=== PATIENT | male | born 1930 | race Caucasian/White ===

== ENCOUNTER → 2016-10-31 | Outpatient (CLI) | payer MEDICARE | END | disposition home or self-care (01) | LOC: GMAJ 10:22 | PROVIDERS: ATTEND Family Medicine | DX: D51.3 Other dietary vitamin B12 deficiency anemia (principal); E55.9 Vitamin D deficiency, unspecified ==

== ENCOUNTER → 2018-09-18 | Outpatient (CLI) | payer MEDICARE | LOC: GMAL 11:35 | PROVIDERS: ATTEND Family Medicine | DX: D51.3 Other dietary vitamin B12 deficiency anemia (principal); R53.83 Other fatigue; E55.9 Vitamin D deficiency, unspecified ==

== ENCOUNTER → 2019-07-13 | Outpatient (CLI) | payer MEDICARE | LOC: YCHH 10:18 | PROVIDERS: ATTEND Family Medicine | DX: N18.9 Chronic kidney disease, unspecified (principal); I10 Essential (primary) hypertension; D64.9 Anemia, unspecified ==

== ENCOUNTER 2019-08-22 18:55 | Observation (INO) | payer MEDICARE ==
[2019-08-22] MEDS ORDERED: FOLIC ACID IVPB ONE (19:30)
[2019-08-22] MEDS ORDERED: SODIUM CHLORIDE 0.9% IVPB ONE (19:30)
[2019-08-22] MEDS ORDERED: THIAMINE HCL INJ 100 MG in SODIUM CHLORIDE 0.9% 100ML 100 ML IVPB ONE (19:31)
[2019-08-22] MEDS ORDERED: SODIUM CHLORIDE 0.9% 1000ML 1,000 ML IVS ONE (19:45)
--- NOTE | 2019-08-22 19:46 | CT ---
EXAM DESCRIPTION: Head CLINICAL HISTORY: fall wiht ams COMPARISON: None Available. TECHNIQUE: Contiguous axial images of the brain were obtained without the administration of intravenous contrast.This exam was performed according to our departmental dose-optimization program, which includes automated exposure control, adjustment of the mA and/or kV according to patient size and/or use of iterative reconstruction technique. FINDINGS: There is no acute intracranial hemorrhage or mass effect. Areas of low attenuation in the periventricular and subcortical white matter are nonspecific but suggestive of small vessel disease. There is generalized atrophy. Ventricular system is within normal limits. There is adequate hough-white matter differentiation. There is no skull fracture. The visualized paranasal sinuses and mastoid air cells are within normal limits. There is atherosclerosis. Subcutaneous emphysema within the left posterior scalp compatible with recent laceration. IMPRESSION: No acute intracranial abnormalities. Electronically signed by: Deniz Kendall MD 08/22/2019 7:44 PM [facility]
--- NOTE | 2019-08-22 19:49 | CT ---
EXAM DESCRIPTION: Cervical Spine CLINICAL HISTORY: fall wiht ams COMPARISON: None Available TECHNIQUE: Contiguous axial images of the cervical spine were obtained without the administration of intravenous contrast followed by reconstruction images. This exam was performed according to our departmental dose-optimization program, which includes automated exposure control, adjustment of the mA and/or kV according to patient size and/or use of iterative reconstruction technique. FINDINGS: There is no acute fracture or subluxation. Prevertebral soft tissues are within normal limits. There is diffuse intervertebral disc space narrowing and osteophytic formation. There is bilateral neural foramina narrowing at C2-C3 and C3-C4, right neural foramina narrowing at C4-C5, and bilateral neural foramina narrowing at C5-C6 and C6-7. There is atherosclerosis. IMPRESSION: No acute fracture or subluxation. Diffuse degenerative changes. Electronically signed by: Deniz Kendall MD 08/22/2019 7:48 PM [facility]
--- NOTE | 2019-08-22 19:50 | RAD ---
EXAM DESCRIPTION: Chest x-ray,1 View CLINICAL HISTORY: ams, fall COMPARISON: None FINDINGS: Cardiac silhouette is enlarged which could be secondary to cardiomegaly. Pacer leads project over the heart. EKG leads project over the chest. There is no focal parenchymal or pleural disease. There is no acute osseous process visualized. IMPRESSION: No evidence of acute cardiopulmonary disease. Electronically signed by: Deniz Kendall MD 08/22/2019 7:48 PM [employer]
--- NOTE | 2019-08-22 20:05 | ED.PDOC ---
History of Present Illness - General Chief Complaint: Trauma Stated Complaint: s/p fall Time Seen by Provider: 08/22/19 19:00 Source: patient, family, EMS Exam Limitations: clinical condition, intoxication - History of Present Illness Initial Comments: the patient is a 89-year-old male presenting to emergency room by EMS after having fallen at home. The patient does not remember the fall. Apparently he fell backwards and hit his head on the fireplace. He has a small laceration that will not require repair over the occipital area. He is alert. He is not very oriented. He does recognize his and knows that he is in the hospital. He does not know what year it is or who is president. He does keep asking the same questions over and over. I do not know how much dementia he has the first place. His definitely has some significant dementia. I see no other injuries. He is not reporting pain elsewhere. He is pleasant and cooperative. His is very nice but she is unable to really give much medical information as well. He is not remembering if he drank any alcohol today. No neck pain. No chest pain. No shortness of breath. No nausea or vomiting. He moves all extremities well while in bed. Timing/Duration: momentarily Severity: moderate Improving Factors: nothing Worsening Factors: nothing Associated Symptoms: malaise Allergies/Adverse Reactions: Allergies NO KNOWN ALLERGY Allergy (Unverified 12/27/14 12:56) Review of Systems - Review of Systems Constitutional: States: malaise EENTM: States: no symptoms reported Respiratory: States: no symptoms reported Gastrointestinal/Abdominal: States: no symptoms reported Genitourinary: States: no symptoms reported Musculoskeletal: States: no symptoms reported Skin: States: see HPI Neurological: States: see HPI Endocrine: States: no symptoms reported All other Systems: No Change from Baseline Past Medical History (General) - Patient Medical History Hx Seizures: No Hx Stroke: No Hx Dementia: No Hx Asthma: No Hx of COPD: No Hx Cardiac Disorders: No Hx Congestive Heart Failure: No Hx Pacemaker: No Hx Hypertension: No Hx Thyroid Disease: No Hx Diabetes: No Hx Gastroesophageal Reflux: No Hx Renal Disease: No Hx Cancer: No Hx of HIV: No Hx Hepatitis C: No Hx MRSA: No - Social History Hx Tobacco Use: No Family Medical History - Family History Mother Hx Family Stroke: Yes Physical Exam - Physical Exam General Appearance: Alert, Comfortable, No apparent distress Eye Exam: bilateral normal Ears, Nose, Throat: hearing grossly normal - ildly chronically decreased bilaterally, normal pharynx, other - no evidence of basilar skull fracture. Neck: full range of motion, supple Respiratory: lungs clear, normal breath sounds, no respiratory distress, no accessory muscle use Cardiovascular/Chest: normal peripheral pulses, no edema, other - regular rate Peripheral Pulses: radial,right: 2+, radial,left: 2+ Gastrointestinal/Abdominal: non tender, soft, other - pelvis is stable Back Exam: no CVA tenderness, no vertebral tenderness Extremity: normal range of motion, non-tender, normal inspection, no pedal edema, normal capillary refill Neurologic: display artist II-XII nml as tested, alert, other - see history of present illness no obvious focal neurological deficits. Skin Exam: normal color Comments: Vital Signs - 24 hr 08/22/19 19:06 Pulse Rate [ 88 Right Brachial] Respiratory 16 Rate Blood Pressure 147/64 [Right Arm] O2 Sat by Pulse 94 L Oximetry Progress - Progress Progress: 08/22/19 20:07 the patient is a 89-year-old male that apparently tripped and fell at home while inebriated, fell and hit the back of his head on the fireplace and sustained a concussion. He is still significantly intoxicated. It is difficult to tell what mental changes are from concussion and what mental changes are from any radiation. The patient is being started on folate and thiamine as well as some IV fluids. Given the patient's advanced age and his current mental status, the patient is going to be admitted overnight for continued monitoring. The patient has agreed to this as has his . Admit for continued care. CT scans and lab work are otherwise reassuring. as the alcohol wears off, he may find more sore spots that need additional evaluation. 08/22/19 20:09 - Results/Orders Results/Orders: 08/22/19 19:00 Telemetry .CONTINUOUS EKG STAT 08/22/19 19:01 URINE DRUG SCREEN, 7 ASSAY Stat EKG Assessment ONCE UA [URINALYSIS] Stat 08/22/19 19:30 Folic Acid Inj 2 mg Sodium Chloride 0.9% 50Ml [NS 50ml] 50 ml IVPB ONCE 08/22/19 19:45 Sodium Chloride 0.9% 1000ML [Ns 1000 ml] 1,000 ml IVS ONCE 08/23/19 19:00 EKG STAT Laboratory Results - last 24 hr 08/22/19 08/22/19 08/22/19 19:00 19:00 19:00 WBC 6.5 RBC 4.97 Hgb 15.3 Hct 45.9 MCV 92.3 MCH 30.8 MCHC 33.3 RDW 13.8 Plt Count 216 MPV 8.1 Absolute Neuts (auto) 3.00 Absolute Lymphs (auto) 2.60 Absolute Monos (auto) 0.80 Absolute Eos (auto) 0.10 Absolute Basos (auto) 0.10 Neutrophils % 46.7 Lymphocytes % 39.6 Monocytes % 11.8 H Eosinophils % 1.0 Basophils % 0.9 PT 10.2 INR 1.02 PTT (SP) 23.2 Sodium 139 Potassium 3.7 Chloride 105 Carbon Dioxide 26 Anion Gap 11.7 L BUN 16 Creatinine 1.01 BUN/Creatinine Ratio 15.8 POC Glucose Random Glucose 114 H Serum Osmolality 279.6 Lactic Acid Calcium 9.6 Magnesium 2.4 Total Bilirubin 0.4 AST 28 ALT 30 Alkaline Phosphatase 62 Creatine Kinase 106 CK-MB (CK-2) 3.6 CK-MB (CK-2) % Not Reportable Troponin I 0.03 B-Natriuretic Peptide 168.0 H Serum Total Protein 7.1 Albumin 3.7 Globulin 3.4 Albumin/Globulin Ratio 1.1 TSH 2.54 Ethyl Alcohol 08/22/19 08/22/19 08/22/19 19:00 19:00 19:00 WBC RBC Hgb Hct MCV MCH MCHC RDW Plt Count MPV Absolute Neuts (auto) Absolute Lymphs (auto) Absolute Monos (auto) Absolute Eos (auto) Absolute Basos (auto) Neutrophils % Lymphocytes % Monocytes % Eosinophils % Basophils % PT INR PTT (SP) Sodium Potassium Chloride Carbon Dioxide Anion Gap BUN Creatinine BUN/Creatinine Ratio POC Glucose 102 Random Glucose Serum Osmolality Lactic Acid 2.2 Calcium Magnesium Total Bilirubin AST ALT Alkaline Phosphatase Creatine Kinase CK-MB (CK-2) CK-MB (CK-2) % Troponin I B-Natriuretic Peptide Serum Total Protein Albumin Globulin Albumin/Globulin Ratio TSH Ethyl Alcohol 182.00 H* head CT shows the small scalp laceration but no acute pathology otherwise. Chronic changes are present. Cervical spine CT shows no evidence of acute pathology. He does have significant DJD throughout. Chest x-ray shows no acute pathology. EKG shows a ventricularly paced rhythm at 78 bpm. Departure - Departure Clinical Impression: Fall at home Concussion Qualifiers: Encounter type: initial encounter Loss of consciousness presence/duration: with LOC of 30 min or less Qualified Code(s): S06.0X1A - Concussion with loss of consciousness of 30 minutes or less, initial encounter Alcohol intoxication Qualifiers: Complication of substance-induced condition: with unspecified complication Qualified Code(s): F10.929 - Alcohol use, unspecified with intoxication, unspecified Disposition: Admit Patient Departure Forms: ED Discharge - Pt. Copy, Patient Portal Self Enrollment Referrals: Rahul Mckeon III, MD [Primary Care Provider] - 1-2 Weeks Decision To Admit - Decistion To Admit Decision to Admit Reason: Accidental Injury Decision to Admit Date: 08/22/19 Decision to Admit Time: 20:09
[2019-08-22] MEDS ORDERED: SODIUM CHLORIDE 0.9% 100ML 100 ML IVPB ONE (20:20)
[2019-08-22] MEDS ORDERED: THIAMINE HCL INJ 100 MG/ML VIAL ONE (20:20)
--- NOTE | 2019-08-22 20:29 | HP ---
SUPERVISING PHYSICIAN: Kevin Hayes M.D. CHIEF COMPLAINT: Trauma. HISTORY OF PRESENT ILLNESS: This is an 89 year-old male patient who came to the Emergency Room via EMS after falling at home. He did not remember the fall. He apparently fell backwards and hit his head on his fireplace. There was a small laceration on the back of his head that did not require any repair or stitching. It was in the occipital area. At the time of admission to the Emergency Room he was alert but disoriented. He did recognize his and he knew that he was at the hospital. He does have some dementia and lives at home with his . Both he and his have had some significant dementia. He did not remember drinking any alcohol, although his alcohol level was 182. His temperature in the Emergency Room was 97.1, heart rate 74, blood pressure 115/54, respiratory rate 18, O2 saturation 95% on room air. Laboratory studies were done. In addition to the elevated alcohol level his CBC was unresponsiveness. Coagulation studies were within normal limits. Electrolytes are within normal limits. Glucose 114, BNP was slightly elevated at 165. Liver function tests were normal. TSH was also normal at 254. Lactic acid was 2.2. Urinalysis was negative. Urine drug screen was negative. Head CT shows no acute intracranial abnormalities. Cervical spine CT showed no acute fracture or subluxation, diffuse degenerative changes. Chest x-ray showed no evidence of acute cardiopulmonary disease. I was called for hospital admission. PAST MEDICAL HISTORY: 1. Hyperlipidemia. 2. Hypercholesterolemia. 3. Hypertension. 4. 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 5. Atherosclerotic heart disease. 6. Pacemaker implantation. PAST SURGICAL HISTORY: 1. Pacemaker implantation. 2. Multiple excisions on the face for skin cancers. 3. Removal of a cyst from the left ring finger. OUTPATIENT MEDICATIONS: 1. Atorvastatin. 2. Donepezil. 3. Lisinopril. ALLERGIES: NO KNOWN DRUG ALLERGIES. FAMILY HISTORY: Noncontributory. SOCIAL HISTORY: He is retired. He is . He lives with his at home. He has 2 children. He does admit to drinking 1 to 2 drinks nightly. He does not remember drinking more than that last night. There is no history of alcohol abuse. There is no history of tobacco or illicit drug use. REVIEW OF SYSTEMS: GENERAL: Negative for fever, fatigue or weight changes. HEENT: Negative for sinus symptoms, ear pain vision changes or sore throat. RESPIRATORY: Negative for coughing, wheezing or shortness of breath. CARDIAC: Negative for chest pains, palpitations or tachycardia. GASTROINTESTINAL: Negative for nausea, vomiting, diarrhea or constipation. GENITOURINARY: Negative for hematuria, dysuria or polyuria. MUSCULOSKELETAL: Positive for difficulty walking around. He does not use any assistive devices. He must hold onto things due to his imbalance. Negative for arthralgia or myalgias. SKIN: Positive for a small laceration on the occipital portion of his head that did not require stitching. Negative for any rashes. NEUROLOGIC: Positive for weakness and dizziness. Negative for seizures. PHYSICAL EXAMINATION: VITAL SIGNS: Temperature 98, heart rate 80, blood pressure 135/78, respiratory rate 18, O2 saturation 95%. GENERAL: This is an 89 year-old male patient who is sitting up in his hospital bed. He is confused but in no acute distress. HEENT: Normocephalic. There is a small laceration on the occipital part of his head that is well approximated and has a scab on it. There is no active bleeding at this time. Pupils are equal and reactive. Oropharynx is clear. NECK: Supple without mass. RESPIRATORY: Essentially clear to auscultation bilaterally. CHEST: There is equal rise and fall of the chest with inspiration and expiration. CARDIOVASCULAR: Regular rate and rhythm. GASTROINTESTINAL: Abdomen is soft, nondistended, non-tender. Bowel sounds are positive. EXTREMITIES: No clubbing, cyanosis or edema. NEUROLOGIC: He is awake and alert. He is oriented to person and place. SKIN: Warm and dry. LABORATORY: Labs and films are as per the history of present illness. ASSESSMENT: 1. Altered mental status with same level fall at home resulting in a laceration to the back of the head, but no other obvious injuries. 2. ETOH intoxication that contributed to #1. 3. Weakness and debilitation contributing to #1. 4. Dementia. 5. Hyperlipidemia. 6. Hypertension. PLAN: The patient has been placed in observation. We will do neuro checks overnight and restart his home medications. I will also give him some gentle fluids and rehydrate him. He will have SCDs for deep venous thrombosis prophylaxis. Will hold on any Lovenox due to his fall. Routine lab will be redone in the morning, including a blood alcohol level. Most likely he can go home in the morning. Will continue to monitor closely and follow as needed. [facility][id number] [facility]
[2019-08-22] MEDS ORDERED: SODIUM CHLORIDE 0.9% (FLUSH) 10 ML SYG IV PRN (23:28)
[2019-08-22] MEDS ORDERED: ONDANSETRON INJ 4 MG/2 ML VIAL IV PRN (23:28)
[2019-08-22] MEDS ORDERED: KCL 20MEQ/0.45% NS 1,000 ML IVS PRN (23:28)
[2019-08-22] MEDS ORDERED: IV SET AND CAP CHANGE INJ INJ SCH (23:30)
[2019-08-23] MEDS: PANTOPRAZOLE SODIUM IV 40 MG VIAL IV SCH (06:10)
[2019-08-23] MEDS ORDERED: DONEPEZIL HCL 5 MG TAB ONE (07:40)
[2019-08-23] MEDS ORDERED: LISINOPRIL 10 MG TAB ONE (07:40)
[2019-08-23] MEDS: DONEPEZIL HCL 5 MG TAB PO SCH (08:19)
[2019-08-23] MEDS: LISINOPRIL 10 MG TAB PO SCH (08:19)
[2019-08-23] MEDS: SODIUM CHLORIDE 0.9% (FLUSH) 10 ML SYG IV SCH ×2 (08:20→20:10)
[2019-08-23] MEDS ORDERED: ATORVASTATIN 20 MG TAB PO SCH (21:00)
--- NOTE | 2019-08-23 21:55 | PN ---
DATE: 08/23/19 SUPERVISING PHYSICIAN: Kevin Hayes M.D. SUBJECTIVE: The patient is sitting up in bed. He is alert and oriented, although he has obvious dementia. Denies any shortness of breath, nausea or vomiting. He does not remember drinking last night nor does he remember falling and hitting his head. He gets confused fairly easily. Nursing reported that he had a difficult time getting around in his room last night and he had to hold onto something at all times, and agrees that he does hold onto things at home to get around. He does not use any assistive devices. OBJECTIVE: VITAL SIGNS: Temperature 98.2, heart rate 82, blood pressure 169/89, respiratory rate 16, O2 saturation 96% on room air. RESPIRATORY: Essentially clear to auscultation bilaterally. CARDIAC: Regular rate and rhythm. GASTROINTESTINAL: Abdomen is soft, nondistended, non-tender. Bowel sounds are positive. NEUROLOGIC: He is awake and alert. He is oriented to person and place, although he has quite obvious dementia. LABORATORY: CBC is unremarkable. Chemistry is unremarkable as well as cholesterol is within normal limits. Blood alcohol level this morning was less than 5.4. All other labs and films have been reviewed via the EMR. ASSESSMENT: 1. Altered mental status with same level fall at home resulting in a laceration to the back of the head, but no other obvious injuries. 2. ETOH intoxication that contributed to #1. 3. Weakness and debilitation contributing to #1. 4. Dementia. 5. Hyperlipidemia. 6. Hypertension. PLAN: We will continue present supportive care, although he will not need neuro checks overnight. He will stay in the hospital due to his weakness and debilitation to be evaluated by Physical Therapy tomorrow for safety on discharge. I have also consulted [employer] as we have initiated an [facility] referral. Hopefully he can go to the rehab facility and be evaluated as well as to rehabilitation to increase his strength. I have held on any lab for tomorrow. He should be able to be discharged after his physical therapy and after [facility] calls with their referral results. Will continue to monitor closely and follow as needed. #[id number] [facility]
[2019-08-24] MEDS: PANTOPRAZOLE SODIUM IV 40 MG VIAL IV SCH (05:37)
[2019-08-24] MEDS: SODIUM CHLORIDE 0.9% (FLUSH) 10 ML SYG IV SCH (09:26)
[2019-08-24] MEDS: DONEPEZIL HCL 5 MG TAB PO SCH (09:26)
[2019-08-24] MEDS: LISINOPRIL 10 MG TAB PO SCH (09:26)
[2019-08-24 12:22] VITALS: O2SAT 93
[2019-08-24 12:50] VITALS: BP 132/71; TEMP 98.3
[2019-08-25] MEDS ORDERED: PANTOPRAZOLE SODIUM TAB 40 MG PO SCH (06:30)
--- NOTE | 2019-09-07 08:39 | DS ---
SUPERVISING PHYSICIAN: Clementine Romero MD ADMISSION DIAGNOSIS: 1. Altered mental status with same level fall at home resulting in a laceration to the back of the head, but no other obvious injuries. 2. ETOH intoxication that contributed to #1. 3. Weakness and debilitation contributing to #1. 4. Dementia. 5. Hyperlipidemia. 6. Hypertension. DISCHARGE DIAGNOSIS: 1. Altered mental status with same level fall at home resulting in a laceration to the back of the head, but no other obvious injuries. 2. ETOH intoxication that contributed to #1. 3. Weakness and debilitation contributing to #1. 4. Dementia. 5. Hyperlipidemia. 6. Hypertension. REASON FOR HOSPITALIZATION: This is an 89 year-old male patient who came to the Emergency Room via EMS after falling at home. He did not remember the fall. He apparently fell backwards and hit his head on his fireplace. There was a small laceration on the back of his head that did not require any repair or stitching. It was in the occipital area. At the time of admission to the Emergency Room he was alert but disoriented. He did recognize his and he knew that he was at the hospital. He does have some dementia and lives at home with his . Both he and his have had some significant dementia. He did not remember drinking any alcohol, although his alcohol level was 182. His temperature in the Emergency Room was 97.1, heart rate 74, blood pressure 115/54, respiratory rate 18, O2 saturation 95% on room air. Laboratory studies were done. In addition to the elevated alcohol level his CBC was unremarkable. Coagulation studies were within normal limits. Electrolytes are within normal limits. Glucose 114, BNP was slightly elevated at 165. Liver function tests were normal. TSH was also normal at 254. Lactic acid was 2.2. Urinalysis was negative. Urine drug screen was negative. Head CT shows no acute intracranial abnormalities. Cervical spine CT showed no acute fracture or subluxation, diffuse degenerative changes. Chest x-ray showed no evidence of acute cardiopulmonary disease. I was called for hospital admission. LABORATORY: CBC was essentially within normal limits on admission and discharge with a white count of 5,300. Coagulation studies were within normal limits. Chemistries showed normal electrolytes both on admission and at discharge. Lactic acid was normal at 2.2. Liver functions were all within normal limits. TSH normal at 2.54. Urinalysis within normal limits. Alcohol on admission was 182 and prior to discharge was less than 5.4. Urine drug screen was normal. RADIOLOGY: He had multiple x-rays, one of the chest with 2 CTs, one of the cervical spine, one of the head without any acute findings. Please see those reports for details. EKG showed a 100% paced rhythm. HOSPITAL COURSE: Mr. Camarillo was admitted after sustaining a fall due to intoxication. He was observed with neuro checks. He did well clinically. Initial plans were to go to [facility] for rehabilitation due to the patient's multiple falls. PLAN: He was discharged home awaiting an [facility] referral. He was to followup with Dr. Mckeon in 7 days or sooner. He was to resume his home medications. He was instructed to not drink any alcohol. He was to increase activity as per physical therapy. No medications were prescribed on discharge. All medications prior to hospitalization were resumed. CONDITION ON DISCHARGE: Stable and improved. DISPOSITION: The patient was discharged awaiting a referral to [facility]. [facility][id number] [facility]
== END 2019-08-24 15:30 | disposition home or self-care (01) ==
LOC: ER 18:55 → MS 20:28
PROVIDERS: ADMIT Nurse Practitioner Acute Care; ATTEND Nurse Practitioner Family
DX: S06.0X1A Concussion with loss of consciousness of 30 minutes or less, initial encounter (principal); S01.01XA Laceration without foreign body of scalp, initial encounter; F10.129 Alcohol abuse with intoxication, unspecified; Y90.6 Blood alcohol level of 120-199 mg/100 ml; R41.82 Altered mental status, unspecified; F03.90 Unspecified dementia, unspecified severity, without behavioral disturbance, psychotic disturbance, mood disturbance, and anxiety; R53.1 Weakness; R53.81 Other malaise; E78.5 Hyperlipidemia, unspecified; I10 Essential (primary) hypertension; M47.812 Spondylosis without myelopathy or radiculopathy, cervical region; Z79.899 Other long term (current) drug therapy; Z95.1 Presence of aortocoronary bypass graft; Z85.828 Personal history of other malignant neoplasm of skin; Z82.3 Family history of stroke; W01.198A Fall on same level from slipping, tripping and stumbling with subsequent striking against other object, initial encounter; Y93.89 Activity, other specified; Y92.008 Other place in unspecified non-institutional (private) residence as the place of occurrence of the external cause

== ENCOUNTER → 2020-10-03 | Outpatient (CLI) | payer MEDICARE | LOC: YCHH 10:28 | PROVIDERS: ATTEND Family Medicine | DX: D64.9 Anemia, unspecified (principal); N18.9 Chronic kidney disease, unspecified; E78.5 Hyperlipidemia, unspecified; E03.9 Hypothyroidism, unspecified; K74.60 Unspecified cirrhosis of liver ==

== ENCOUNTER → 2020-10-21 | Outpatient (CLI) | payer MEDICARE ==
--- NOTE | 2020-10-21 16:45 | US ---
EXAM DESCRIPTION: Carotid Duplex: ULTRASOUND. CLINICAL HISTORY: 89 years Male CARDIAC MURMUR COMPARISON: None. TECHNIQUE: Transcutaneous scanning utilizing hough-scale and Doppler modes to evaluate the bilateral carotid systems and vertebral arteries. Percentage of diameter of stenosis or no stenosis recorded will be based upon NASCET criteria. FINDINGS: Peak systolic/end diastolic velocities (CM-Sec) CCA Right 70/0 Left 67/7. ICA Right proximal 58/10, distal 74/18. Left proximal 37/7, Distal 82/21. Vertebral Right 41/13 Left 31/6. ECA (PS Only) Right 123 left 121. ICA/CCA peak systolic velocity ratio: Right 1.1 Left 1.2 ICA/CCA end diastolic velocity ratio: Right n/a Left 3.0 Vertebral arteries: antegrade flow. Comments Comments: Atherosclerotic calcifications in the common carotid bifurcation proximal ICAs bilaterally. Area and diameter stenoses less than 40% on the right. Area and diameter stenoses less than 50% on the left. No spectral broadening. IMPRESSION: 1. Doppler evaluation of the bilateral carotid systems and vertebral arteries shows no hemodynamically significant stenoses (less than 70%). 2. Moderate amount of plaque in the carotid arteries bilaterally. Bilateral vertebral arteries showed antegrade-cephalad flow. Electronically signed by: Denys Washburn MD 10/21/2020 4:[address] [employer]
== END ==
LOC: US 08:11
PROVIDERS: ATTEND Family Medicine
DX: R01.1 Cardiac murmur, unspecified (principal); I65.23 Occlusion and stenosis of bilateral carotid arteries